=== PATIENT | female | born 1955 | race Caucasian/White ===

== ENCOUNTER 2019-05-14 09:39 | Day surgery (SDC) | payer OTHER ==
[2019-05-10 12:30] VITALS: BMI 32.5
[~2019-05-14 09:39] MED LIST: LACTATED RINGERS 1,000 ML IV SCH; LIDOCAINE 1% 20 ML VIAL (10MG/ML) FOR IV START INTRADERMA PRN
[2019-05-14 10:56] VITALS: RESP 16; TEMP 98.6
[2019-05-14] MEDS ORDERED: ONDANSETRON 4 MG/2 ML VIAL IVP ONE (11:01)
[2019-05-14] MEDS ORDERED: PROPOFOL 10 MG/ML 20 ML VIAL IV ONE (11:54)
--- NOTE | 2019-05-14 13:00 | P.PCN ---
Date of Procedure: 05/14/19 Description of Procedure: BRIEF HISTORY: Patient is a 63-year-old pleasant female scheduled for an elective colonoscopy as a part of screening for malignant neoplasm after testing positive for blood in the stool. Patient also reports intermittently seeing blood on the tissue paper with wiping. No change in bowel habits, constipation, diarrhea, abdominal pain or unintentional weight loss. Does report a history of colon cancer in her grandmother. Last colonoscopy 15 years ago. PROCEDURE PERFORMED: Colonoscopy with polypectomy. PREOPERATIVE DIAGNOSIS: And screening for malignant neoplasm of the colon, positive stool for occult blood, last colonoscopy 15 years ago. ESTIMATED BLOOD LOSS: Minimal. IV sedation per Anesthesia. PROCEDURE: After informed consent was obtained, the patient, was brought into the endoscopy unit. IV sedation was administered by Anesthesia under continuous monitoring. Digital rectal examination was normal. Initially the Olympus CF-190 flexible video colonoscope was then inserted in the rectum, gradually advanced into the cecum without any difficulty. Careful examination was performed as the scope was gradually being withdrawn. Ileocecal valve and the appendiceal orifice were visualized and appeared normal. Prep was excellent. Mucosa of the cecum, ascending colon, transverse colon, descending colon, sigmoid colon, and rectum appeared normal. 2 sessile transverse colon polyps measuring 3 mm and 6 mm removed with cold snare polypectomy. 4 hepatic flexure polyps measuring 2 mm, 4 mm, 5 mm and 8 mm removed with cold snare polypectomy. One ascending colon polyp measuring 9 mm removed with cold snare polypectomy. 2 diminutive 2 mm sigmoid colon polyps measuring 2 mm removed with cold forcep polypectomy. Mild left-sided diverticulosis. Mild internal hemorrhoids. Retroflexion was performed in the rectum and no lesions were seen. The patient tolerated the procedure well. IMPRESSION: 6 sessile polyps measuring 2 mm to 9 mm removed from the transverse, hepatic and ascending colon with cold snare polypectomy. 2 diminutive sigmoid colon polyps removed with cold forcep polypectomy. Mild left-sided diverticulosis. Mild internal hemorrhoids. RECOMMENDATIONS: Findings of this examination were discussed with the patient and her sister. Okay to resume high-fiber diet. Await pathology from polypectomies. Anticipate repeat colonoscopy in 3 years pending pathology from polypectomies.
[2019-05-14 13:18] VITALS: BP 119/71; PULSE 70
== END 2019-05-14 13:33 | disposition home or self-care (01) ==
LOC: ORWHC2ENDO 09:39 → MERGE 12:55 → ORWHC2ENDO 13:33
PROVIDERS: ATTEND Internal Medicine
DX: D12.3 Benign neoplasm of transverse colon (principal); D12.2 Benign neoplasm of ascending colon; K63.5 Polyp of colon; K57.31 Diverticulosis of large intestine without perforation or abscess with bleeding; K64.8 Other hemorrhoids; M19.90 Unspecified osteoarthritis, unspecified site; K21.9 Gastro-esophageal reflux disease without esophagitis; Z80.0 Family history of malignant neoplasm of digestive organs; Z87.891 Personal history of nicotine dependence
CPT/HCPCS: 88305; 45385; 45380; J2405; J2704

== ENCOUNTER → 2019-07-12 | Outpatient (CLI) | payer OTHER ==
--- NOTE | 2019-07-13 11:44 | MM ---
Reason for exam: screening (asymptomatic). Last mammogram was performed 10 years and 4 months ago. History: Patient is postmenopausal. Family history of breast cancer in grandmother. Physical Findings: A clinical breast exam by your physician is recommended on an annual basis and results should be correlated with mammographic findings. MG Screening Mammo w CAD Bilateral CC and MLO view(s) were taken. XCCL view(s) were taken of the right breast. Prior study comparison: February 28, 2009, bilateral digital screening mammogram. January 20, 2007, CAD bilateral diagnostic mammogram. There are scattered fibroglandular densities. Stable benign calcifications. There is no discrete abnormality. No significant changes when compared with prior studies. ASSESSMENT: Benign, BI-RAD 2 RECOMMENDATION: Routine screening mammogram of both breasts in 1 year.
== END ==
LOC: RADMAMWWP 09:24
PROVIDERS: ATTEND Family Medicine
DX: Z12.31 Encounter for screening mammogram for malignant neoplasm of breast (principal)
CPT/HCPCS: 77067

== ENCOUNTER → 2019-11-09 | Outpatient (CLI) | payer OTHER ==
--- NOTE | 2019-11-09 14:25 | XR ---
EXAMINATION TYPE: XR bone survey complete DATE OF EXAM: 11/09/2019 COMPARISON: NONE HISTORY: Monoclonal gammopathy Chest: No focal consolidation, pleural effusion or pneumothorax. Ribs appear grossly unremarkable. Bony calvarium : 2 views of the bony calvarium demonstrate. No suspicious lytic lesion Spine: Two views of the cervical, thoracic and lumbar spines are submitted. Cervical spine demonstra ayden mild degenerative disc disease of the lower cervical spine. No lytic lesion identified. Thoracic spine demonstrates multilevel mild degenerative disc disease. No focal suspicious lesion. Similarly l umbar spine demonstrates multilevel facet arthropathy and small anterior osteophytes with no lytic le анна identified. PELVIS: Single view of the pelvis demonstrates. Slightly limited by overlying bowel loops particular ly of the right iliac bone. No suspicious lytic lesion is seen. Evaluation of the sacrum distally and coccyx is limited. UPPER EXTREMITIES: Two views of the upper extremities. No suspicious lytic lesion is seen. Mild acrom ioclavicular arthropathy bilaterally. LOWER EXTREMITIES: 2 views of the lower extremities. No suspicious lytic lesion IMPRESSION: No suspicious lytic lesion of the visualized osseous structures. Degenerative changes as described above.
== END | disposition home or self-care (01) ==
LOC: RADXRMAIN 09:04
PROVIDERS: ATTEND Internal Medicine Hematology & Oncology
DX: D47.2 Monoclonal gammopathy (principal); Z71.3 Dietary counseling and surveillance
CPT/HCPCS: 77075

== ENCOUNTER → 2020-09-25 | Outpatient (CLI) | payer OTHER ==
--- NOTE | 2020-09-26 08:54 | MM ---
Reason for exam: screening (asymptomatic). Last mammogram was performed 1 year and 2 months ago. History: Patient is postmenopausal. Family history of breast cancer in grandmother. Physical Findings: A clinical breast exam by your physician is recommended on an annual basis and results should be correlated with mammographic findings. MG Screening Mammo w CAD Bilateral CC and MLO view(s) were taken. Prior study comparison: July 12, 2019, bilateral MG screening mammo w CAD. February 28, 2009, bilateral digital screening mammogram. There are scattered fibroglandular densities. There are benign appearing round calcifications bilaterally. There is no discrete abnormality. ASSESSMENT: Benign, BI-RAD 2 RECOMMENDATION: Routine screening mammogram of both breasts in 1 year.
== END | disposition home or self-care (01) ==
LOC: RADMAMWWP 10:32
PROVIDERS: ATTEND Family Medicine
DX: Z12.31 Encounter for screening mammogram for malignant neoplasm of breast (principal)
CPT/HCPCS: 77067

== ENCOUNTER → 2021-10-30 | Outpatient (CLI) | payer MEDICARE ==
--- NOTE | 2021-11-02 12:20 | MM ---
Reason for exam: screening (asymptomatic). Last mammogram was performed 1 year and 1 month ago. History: Patient is postmenopausal. Family history of breast cancer in maternal grandmother. Physical Findings: A clinical breast exam by your physician is recommended on an annual basis and results should be correlated with mammographic findings. MG 3D Screening Mammo W/Cad Bilateral CC and MLO view(s) were taken. Prior study comparison: September 25, 2020, bilateral MG screening mammo w CAD. July 12, 2019, bilateral MG screening mammo w CAD. There are scattered fibroglandular densities. Benign appearing bilateral calcifications. No significant changes when compared with prior studies. ASSESSMENT: Benign, BI-RAD 2 RECOMMENDATION: Routine screening mammogram of both breasts in 1 year.
== END | disposition home or self-care (01) ==
LOC: RADMAMWWP 14:18
PROVIDERS: ATTEND Family Medicine
DX: Z12.31 Encounter for screening mammogram for malignant neoplasm of breast (principal); Z80.3 Family history of malignant neoplasm of breast; Z78.0 Asymptomatic menopausal state
CPT/HCPCS: 77063; 77067

== ENCOUNTER → 2022-05-07 | Outpatient (CLI) | payer MEDICARE ==
--- NOTE | 2022-05-07 08:17 | US ---
EXAMINATION TYPE: US thyroid st tissue head/neck DATE OF EXAM: 05/07/2022 COMPARISON: NONE CLINICAL HISTORY: E03.9 HYPOTHYROIDISM. Abnormal labs GLAND SIZE: Right Lobe: 4.6 x 1.4 x 1.1 cm Overall Parenchyma: heterogenous Left Lobe: 4.3 x 1.4 x 1.0 cm Overall Parenchyma: heterogeneous Isthmus Thickness: 0.2 cm NODULES RIGHT: # of nodules measured on right: 0 LEFT: # of nodules measured on left: 0 ISTHMUS: # of nodules measured in the isthmus: 0 Bilateral neck scanned, no evidence of lymphadenopathy. Slightly heterogeneous normal-sized thyroid without discrete nodules. IMPRESSION: As above
== END | disposition home or self-care (01) ==
LOC: RADUSWWP 07:24
PROVIDERS: ATTEND Family Medicine
DX: E03.9 Hypothyroidism, unspecified (principal)
CPT/HCPCS: 76536

== ENCOUNTER → 2022-11-09 | Outpatient (CLI) | payer MEDICARE ==
--- NOTE | 2022-11-10 21:39 | MM ---
Reason for Exam: Screening (asymptomatic). Last screening mammogram was performed 12 month(s) ago. Patient History: Menarche at age 12. First Full-Term at age 19. Left ovary removed at age 47. Right ovary removed at age 47. Hysterectomy at age 47. Postmenopausal. Maternal grandmother had breast cancer. Risk Values: Earline 5 year model risk: 1.5%. NCI Lifetime model risk: 5.0%. Prior Study Comparison: 07/12/2019 Bilateral Screening Mammogram, [facility]. 09/25/2020 Bilateral Screening Mammogram, [facility]. 10/30/2021 Bilateral Screening Mammogram, [facility]. Tissue Density: There are scattered fibroglandular densities. Findings: Analyzed By CAD. Chronic bilateral nodularity and benign bilateral oil cyst calcifications. There is no suspicious group of microcalcifications or new suspicious mass in either breast. Overall Assessment: Benign, BI-RAD 2 Management: Screening Mammogram of both breasts in 1 year. 1. Patient should continue monthly self breast exams. 2. A clinical breast exam by your physician is recommended on an annual basis. 3. This exam should not preclude additional follow-up of suspicious palpable abnormalities. Electronically signed and approved by: Robin Bone M.D. Radiologist
== END | disposition home or self-care (01) ==
LOC: RADMAMWWP 13:01
PROVIDERS: ATTEND Family Medicine
DX: Z12.31 Encounter for screening mammogram for malignant neoplasm of breast (principal); Z78.0 Asymptomatic menopausal state; Z80.3 Family history of malignant neoplasm of breast
CPT/HCPCS: 77067

== ENCOUNTER → 2023-04-12 | Outpatient (CLI) | payer MEDICARE ==
--- NOTE | 2023-04-13 12:11 | MR ---
EXAMINATION TYPE: MR lumbar spine wo/w con DATE OF EXAM: 04/12/2023 5:05 PM COMPARISON: None. CLINICAL INDICATION: Female, 67 years old with history of R20.0,R20.2, R32 Low back pain that radiate s down right leg. TECHNIQUE: Multi planar, multi sequence imaging was performed utilizing: T1-weighted, T2-weighted, a nd turbo inversion recovery imaging of the lumbar spine. IV Contrast: 9 cc Gadavist. None. FINDINGS: Alignment: The lumbar vertebral bodies have preserved heights with grade 1 anterolisthesis of L3 on L 4.. Cord: The conus medullaris and the distal spinal cord appear unremarkable with regards to their signa l intensity and morphology. No abnormal postcontrast enhancement. Bones/Discs: No abnormal bony edema on inversion recovery sequences. Scattered multilevel disc degene ration changes with osteophyte formation and facet joint arthropathy. There is multilevel disc desicc ation present. Postcontrast imaging demonstrates mild enhancement around the L2-L3 and L3-L4 facet rodo ints. T12-L1: No evidence of significant spinal canal stenosis or neural foraminal stenosis. L1-L2: No evidence of significant spinal canal stenosis or neural foraminal stenosis. L2-L3: No evidence of significant spinal canal stenosis or neural foraminal stenosis. L3-L4: Grade 1 anterolisthesis with disc uncovering facet joint arthropathy result in moderate spina l canal and mild to moderate bilateral neural foraminal stenosis. L4-L5: Disc bulge and facet joint arthropathy result in mild spinal canal and mild bilateral neural f oraminal stenosis. L5-S1: The disc is rounded posterior morphology without significant spinal canal stenosis. Facet join t arthropathy with mild neural foraminal stenosis. No significant spinal canal or neural foraminal stenosis in the remainder of the visualized levels. Other findings: None. IMPRESSION: 1. No definitive evidence of disc herniation or significant spinal canal stenosis or neural foramina l stenosis. 2. Grade 1 anterolisthesis of L3 on L4 with disc uncovering with moderate spinal canal stenosis. Mil d to moderate bilateral neural foraminal stenosis at this level. 3. Mild enhancement around the right L2-L3 and L3-L4 facet joint suggesting active inflammation.
== END | disposition home or self-care (01) ==
LOC: RADMRIMAIN 16:07
PROVIDERS: ATTEND Family Medicine
DX: M43.16 Spondylolisthesis, lumbar region (principal); M99.73 Connective tissue and disc stenosis of intervertebral foramina of lumbar region; R20.0 Anesthesia of skin; R20.2 Paresthesia of skin; R32 Unspecified urinary incontinence
CPT/HCPCS: 72158; A9585

== ENCOUNTER → 2023-05-18 | Outpatient (CLI) | payer MEDICARE ==
[2023-05-18 13:44] LABS: African American GFR (CKD) >90 (>60 ml/min/1.73 sqM); Blood Urea Nitrogen 15 mg/dL (7-17); Non-African American GFR(CKD) >90 (>60 ml/min/1.73 sqM)
--- NOTE | 2023-05-22 20:20 | CT ---
EXAMINATION TYPE: CT abdomen w con DATE OF EXAM: 05/18/2023 COMPARISON: NONE HISTORY: 67-year-old female R31.9, Hematuria TECHNIQUE: Contiguous axial scanning of the abdomen following administration of 100 ml Isovue 300 IV contrast. Delayed images through the kidneys and coronal/sagittal reconstructions performed. CT DLP: 1356.2 mGycm Automated exposure control for dose reduction was used. FINDINGS: Heart upper limits of normal in size without pericardial effusion. Extensive LAD coronary a rtery calcifications are present. Prominent emphysematous cyst in the lower lungs. There may be some mild interstitial fibrosis at the lung bases as well. No pleural effusion. Tiny hiatal hernia. Tiny 4 mm hypodensity left liver lobe too small for accurate CT characterization, likely tiny cyst. P ortal venous system is patent. No biliary ductal dilatation. Gallbladder, adrenal glands, kidneys, spleen, and pancreas within normal limits. No nephrolithiasis or discrete renal lesion is identified. Symmetric uptake and excretion of contrast from both kidneys. No dilated small bowel, free fluid, or free air. No mesenteric or retroperitoneal lymphadenopathy. Normal appendix. Mild stool burden. No pericolic inflammatory change. Mild to moderate atherosclerotic calcifications infrarenal abdominal aorta and common iliac arteries. Pelvis not imaged. Bones: Hypertrophic facet arthropathy lumbar spine with grade 1 anterolisthesis L3-L4 and grade 1 ret rolisthesis L4-L5. Mild degenerative disc disease lower lumbar spine. IMPRESSION: 1. KIDNEYS SHOW NO EVIDENCE FOR NEPHROLITHIASIS, SUSPICIOUS RENAL MASS, OR HYDRONEPHROSIS. 2. NOTE THAT THE BLADDER IS NOT IMAGED ON THIS EXAM. 3. LAD CORONARY ARTERY CALCIFICATIONS, COPD IN THE VISUALIZED LOWER LUNGS, AND TINY HIATAL HERNIA.
== END | disposition home or self-care (01) ==
LOC: RADCTMAIN 13:09
PROVIDERS: ATTEND Family Medicine
DX: I25.10 Atherosclerotic heart disease of native coronary artery without angina pectoris (principal); K44.9 Diaphragmatic hernia without obstruction or gangrene; J44.9 Chronic obstructive pulmonary disease, unspecified; R31.9 Hematuria, unspecified
CPT/HCPCS: 82565; 84520; 74160; 36415; Q9967

== ENCOUNTER → 2023-06-03 | Outpatient (CLI) | payer MEDICARE ==
[2023-06-03 13:07] LABS: African American GFR (CKD) 89 (>60 ml/min/1.73 sqM); Blood Urea Nitrogen 16 mg/dL (7-17); Non-African American GFR(CKD) 77 (>60 ml/min/1.73 sqM)
--- NOTE | 2023-06-06 03:04 | CT ---
EXAMINATION TYPE: CT pelvis wo/w con DATE OF EXAM: 06/03/2023 COMPARISON: CT abdomen 05/18/2023 HISTORY: 68 year-old female R31.1, hematuria TECHNIQUE: Contiguous axial scanning of the pelvis before and after administration of 100 ml Isovue 3 00 IV contrast. Delayed images through the bladder and coronal/sagittal reconstructions performed. CT DLP: 1525.7 mGycm Automated exposure control for dose reduction was used. FINDINGS: Mild atherosclerotic calcifications distal abdominal aorta and common iliac arteries. No dilated small bowel, free fluid, or free air. No mesenteric or retroperitoneal or pelvic lymphaden opathy seen. No abnormal fluid collection seen in the pelvis. There are pelvic phleboliths. Uterus surgically absent. Ureteral risk identified. Scattered mild stool demonstrated. Normal appendix. There is mild circumferential bladder wall thickening. Slight eccentric thickening focally along the left lateral aspect of the bladder wall up to 6 mm. Bones: Mild degenerative change in both hips. Facet arthropathy lower lumbar spine. IMPRESSION: 1. MILD CIRCUMFERENTIAL BLADDER WALL THICKENING BUT WITH SLIGHT ECCENTRIC THICKENING FOCALLY ALONG TH E LEFT LATERAL BLADDER WALL UP TO 6 MM. CORRELATE TO EXCLUDE CYSTITIS. GIVEN THE SLIGHT FOCAL THICKEN ING, CORRELATE WITH URINE CYTOLOGY AND EITHER CT OR ULTRASOUND FOLLOW-UP TO EXCLUDE AN EARLY UROTHELI AL NEOPLASM. 2. STATUS POST HYSTERECTOMY AND BILATERAL SALPINGO-OOPHORECTOMIES.
== END | disposition home or self-care (01) ==
LOC: RADCTMAIN 12:17
PROVIDERS: ATTEND Family Medicine
DX: N32.89 Other specified disorders of bladder (principal); R31.1 Benign essential microscopic hematuria; Z90.710 Acquired absence of both cervix and uterus; Z90.722 Acquired absence of ovaries, bilateral
CPT/HCPCS: 82565; 84520; 72194; 36415; Q9967

== ENCOUNTER → 2023-09-30 | Outpatient (CLI) | payer MEDICARE ==
--- NOTE | 2023-09-30 18:33 | CA ---
Transthoracic Echo Report Name: Nita Lozada Age: 68 Gender: F : 1955 Exam Date: 09/30/2023 15:45 Exam Location: [place] [facility] Ht (in): 61 Wt (lb): 194 Ordering Physician: Javier Araiza MD Attending/Referring Phys: Ervin Cox MD Staff Rn Yanet Leahy [facility] Procedure CPT: Indications: R07.9 CHEST PAIN Cardiac Hx: Technical Quality: Very technically difficult study Contrast 1: Definity Total Dose (mL): 6 Contrast 2: Total Dose (mL): MEASUREMENTS (Male / Female) Normal Values 2D ECHO LV Diastolic Diameter PLAX 3.4 cm 4.2 - 5.9 / 3.9 - 5.3 cm LV Systolic Diameter PLAX 2.7 cm IVS Diastolic Thickness 1.2 cm 0.6 - 1.0 / 0.6 - 0.9 cm LVPW Diastolic Thickness 1.1 cm 0.6 - 1.0 / 0.6 - 0.9 cm LV Relative Wall Thickness 0.7 LVOT Diameter 2.0 cm Ascending Aorta Diameter 3.3 cm M-MODE Aortic Root Diameter MM 2.6 cm LA Systolic Diameter MM 3.8 cm LA Ao Ratio MM 1.5 AV Cusp Separation MM 1.8 cm DOPPLER AV Peak Velocity 122.4 cm/s AV Peak Gradient 6.0 mmHg AV Mean Velocity 93.8 cm/s AV Mean Gradient 3.8 mmHg AV Velocity Time Integral 22.5 cm LVOT Peak Velocity 113.7 cm/s LVOT Peak Gradient 5.2 mmHg LVOT Velocity Time Integral 20.1 cm LVOT Stroke Volume 62.3 cm??? LVOT Stroke Volume Index 33.4 ml/m??? LVOT Cardiac Index 2877.8 cm???/min???m??? AV Area Cont Eq vti 2.8 cm??? AV Area Cont Eq pk 2.9 cm??? Mitral E Point Velocity 56.4 cm/s Mitral A Point Velocity 102.8 cm/s Mitral E to A Ratio 0.5 MV Deceleration Time 140.4 ms LV E' Lateral Velocity 6.5 cm/s Mitral E to LV E' Lateral Ratio 8.7 LV E' Septal Velocity 7.9 cm/s Mitral E to LV E' Septal Ratio 7.1 TR Peak Velocity 276.2 cm/s TR Peak Gradient 30.5 mmHg Right Ventricular Systolic Press 35.5 mmHg FINDINGS Left Ventricle Mildly increased septal wall thickness. Mildly increased posterior wall thickness. Left ventricular cavity size normal. Normal left ventricular systolic function with no obvious regional wall motion abnormalities. Left ventricular ejection fraction is estimated at 55-60%. Right Ventricle Right ventricle not well visualized but appears dilated. Mild pulmonary hypertension. Right Atrium Right atrium not well visualized. Left Atrium Left atrium not well visualized. Mitral Valve Mitral valve not well visualized. No mitral regurgitation. Aortic Valve Aortic valve not well visualized. Diffuse thickening (sclerosis) of the aortic valve cusps without reduced excursion. No aortic regurgitation. Tricuspid Valve Tricuspid valve not well visualized. Mild tricuspid regurgitation. Pulmonic Valve Pulmonic valve not well visualized. Pericardium No pericardial effusion. Aorta Normal size aortic root and proximal ascending aorta. CONCLUSIONS Technically difficult study for interpretation Normal LV systolic function. Mild LVH Poorly visualized aortic valve Previewed by: Dr. Franco Horn MD (Electronically Signed) Final Date: 30 September 2023 18:32
== END | disposition home or self-care (01) ==
LOC: RADECHMAIN 15:33
PROVIDERS: ATTEND Family Medicine
DX: R07.9 Chest pain, unspecified (principal); R06.02 Shortness of breath; I51.7 Cardiomegaly
CPT/HCPCS: C8929; Q9957; 93306

== ENCOUNTER → 2023-11-25 | Outpatient (CLI) | payer MEDICARE ==
--- NOTE | 2023-11-28 07:34 | MM ---
Reason for Exam: Screening (asymptomatic). Last mammogram was performed 1 year(s) and 1 month(s) ago. Patient History: Menarche at age 12. First Full-Term at age 19. Left ovary removed at age 47. Right ovary removed at age 47. Hysterectomy at age 47. Postmenopausal. Maternal grandmother had breast cancer. Risk Values: Earline 5 year model risk: 1.5%. NCI Lifetime model risk: 4.8%. Prior Study Comparison: 09/25/2020 Bilateral Screening Mammogram, [facility]. 10/30/2021 Bilateral Screening Mammogram, [facility]. 11/09/2022 Bilateral MG screening mammo w CAD, [facility]. Tissue Density: The breast tissue is almost entirely fat. Findings: Analyzed By CAD. There is no suspicious group of microcalcifications or new suspicious mass. Benign-appearing calcifications bilaterally. Overall Assessment: Negative, BI-RAD 1 Management: Screening Mammogram of both breasts in [address] [facility] will attempt to contact patient to return for supplemental views and ultrasound if indicated. Patient should continue monthly self-breast exams. A clinical breast exam by your physician is recommended on an annual basis. This exam should not preclude additional follow-up of suspicious palpable abnormalities. Note on Earline scores and lifetime risk: 1. A Earline score greater than 3% is considered moderate risk. If this is the case, consider specialist referral to assess eligibility for a risk reducing agent. 2. If overall lifetime risk for the development of breast cancer is 20% or higher, the patient may qualify for future screening with alternating mammogram and breast MRI. Electronically signed and approved by: Cj Love DO
== END | disposition home or self-care (01) ==
LOC: RADMAMWWP 14:36
PROVIDERS: ATTEND Family Medicine
DX: Z12.31 Encounter for screening mammogram for malignant neoplasm of breast (principal); R92.313 Mammographic fatty tissue density, bilateral breasts; Z80.3 Family history of malignant neoplasm of breast; Z78.0 Asymptomatic menopausal state
CPT/HCPCS: 77063; 77067